=== PATIENT | female | born 1945 | race Caucasian/White ===

== ENCOUNTER 2024-10-25 20:38 | Inpatient (IN) | payer MEDICARE, OTHER, SELFPAY ==
[2024-10-25 17:30] VITALS: BP 158/88
--- NOTE | 2024-10-25 17:32 | ED.GENMED ---
History of Present Illness
General
Chief Complaint: Fall
Time Seen by Provider: 10/25/24 17:31
History of Present Illness
History of Present Illness:
TIME OF INITIAL ENCOUNTER: 5:35 PM
HPI: Patient came in by ambulance after a fall. She was at her son's house and stepped down a step carrying a dessert tray, misstepped and fell, and landed on her left hip. She was unable to bear weight afterward. EMS was called and brought her
here. EMS gave 75 mcg of fentanyl and this led to nausea. She still has nausea. She denies striking her head. She appears to be a very reliable historian.
EXAM:
GENERAL: Well appearing in no distress
CERVICAL SPINE: No midline c-spine tenderness with excellent AROM
HEAD: No evidence of craniofacial trauma
CHEST: No chest wall tenderness, normal heart sounds
LUNGS: Equal lung sounds, no respiratory distress
ABDOMEN: No abdominal tenderness, no peritoneal signs
EXTREMITIES: There is markedly decreased active range of motion at the left hip, there is pain with passive range of motion into rotation at the left hip, remainder of extremities are unremarkable
NEURO: Excellent strength all extremities, appropriate mental status, normal speech/language
NUMBER AND COMPLEXITY OF PROBLEMS ADDRESSED AT THE ENCOUNTER
� Chronic conditions affecting care: COPD, GERD, GI bleed, has had colon resection
� Acute Exacerbation and/or Progression of Chronic Illness: This is an acute problem
� Differential Diagnosis includes: Hip fracture, pelvis fracture, contusion
AMOUNT AND/OR COMPLEXITY OF DATA TO BE REVIEWED AND ANALYZED
� I performed an independent evaluation of and my interpretation is:
EKG:
CT:
X-rays: X-ray shows nondisplaced left intertrochanteric fracture
Laboratory Studies: CBC and chemistries unremarkable
Other:
� Review of other/old records: The patient was seen here in 2022 with a contusion of the chest wall
� Clinical information was obtained by an independent historian: EMS
� Prescriptions/Medications Considered but not given: Offered and considered narcotic analgesia however due to the nausea she declines
� Further testing considered but not performed: Considered CT of the head however the patient denies any head injury
RISK OF COMPLICATIONS AND/OR MORBIDITY OR MORTALITY OF PATIENT MANAGEMENT
� Social determinants of health affecting care: Lives at home
� Discussion with other providers: Hospitalist and Ortho notified at 8 PM
� Escalation of care including admission/observation vs risk of discharge considered: Based on initial examination, I am concerned for hip fracture, imaging and labs obtained.
ANY OTHER UPDATES:
Past History
Past History
ED Past Medical History: COPD and GERD
ED Past Surgical History: Bowel resection
Social History
Tobacco: Former smoker
Phy Exam
Physical Exam
Physical Exam:
See HPI
Course
Orders/Labs/Results
Orders:
Orders
10/25/24 17:37
CR Femur - Left Min 2 Vw Urgent
Comment:
Reason For Exam: trauma pain
CR Hip - LT w/wo Pel 2-3 Vw* Urgent
Comment:
Reason For Exam: fall trauma pain
Include a pelvis x-ray?: Yes
10/25/24 17:39
Ondansetron Injectable [Zofran] 4 mg .ROUTE .STK-MED ONE
Ondansetron Injectable [Zofran] 4 mg IV NOW STA
10/25/24 17:42
Type+Screen Urgent
Basic Metabolic Panel Urgent
Complete Blood Count/With Diff Urgent
PTT Urgent
Prothrombin Time Urgent
10/25/24 19:11
ABO2 Urgent
BBK Wristband Number:
Associate notified that ABO2 has been ordered: [id number]
Date: 10/25/24
Time: 19:12
Bread Molder ID: [id number]
10/25/24 20:08
Morphine Sulfate 2 mg IV NOW STA
Ondansetron Injectable [Zofran] 4 mg IV NOW STA
Abnormal Lab Results
10/25/24
17:42
RBC 4.04 L 10^6/uL
(4.20-5.40)
Absolute Monos (auto) 0.9 H 10^3/uL
(0.1-0.6)
Monocytes % 10.8 H %
(1.7-9.3)
Sodium 132 L mmol/L
(135-145)
Creatinine 0.5 L mg/dL
(0.6-1.0)
Glucose 115 H mg/dl
(70-99)
10/25/24 17:42
10/25/24 17:42
Vital Signs
Initial and Last Documented VS:
Initial Vital Signs
Temp Pulse Resp BP
36.4 C 78 18 158/88
10/25/24 17:30 10/25/24 17:30 10/25/24 17:30 10/25/24 17:30
Last Documented Vital Signs
Temp Pulse Resp BP
36.4 C 68 20 158/88
10/25/24 17:30 10/25/24 18:15 10/25/24 18:15 10/25/24 17:34
*Critical Care Note
Total Time (30-74mins, 75-104mins- exclusive of procedures): Not Applicable
ED Attending Note
-
Portions of this chart may have been created with voice recognition software.� Occasional wrong word or��sound alike� substitutions may have occurred due to the inherent limitations of voice recognition software.
Discharge Plan
Departure
Patient Disposition: Admit
Date of Disposition: 10/25/24
Time of Disposition: 20:03
Presentation/result/management discussed w/ accepting MD/DO: Hospitalist
Discharge Problem:
Intertrochanteric fracture of left femur
Prescriptions:
No Action
oxycodone 5 mg tablet
5 mg PO Q4H PRN (Reason: pain) Qty: 14 0RF
gabapentin 100 mg capsule
100 mg PO TID Qty: 20 0RF
Referrals:
UNKNOWN - PT NOT,INTERVIEWE [Family Provider] -
Interventions
Interventions:
*Risk Screen - Suicide Last Done: 10/25/24 17:30
*General Assessment Last Done: 10/25/24 17:30
*Neglect/Abuse Screening Last Done: 10/25/24 17:30
*ED COVID-19 Vaccine History Last Done: 10/25/24 18:23
ED-Musculoskeletal Assessment Last Done: 10/25/24 18:23
ED- Neurological Assessment Last Done: 10/25/24 18:23
ED-Skin Assessment Last Done: 10/25/24 18:23
Discharge Date and Time
Print Language: LUXEMBOURGISH
[2024-10-25 17:34] VITALS: BP 158/88
[2024-10-25] MEDS: ZOFRAN 4 MG IV ×2 (17:41→20:32)
[2024-10-25 17:55] LABS: % Basophils 0.6 % (0-2); % Eosinophils 2.2 % (0-6); % Immature Granulocytes 0.4 % (0-0.5); % Lymphocytes 29.8 % (20.5-51.1); % Monocytes 10.8 % (1.7-9.3); % Neutrophils 56.2 % (42.2-75.2); Absolute Basophils 0.1 10^3/uL (0-0.2); Absolute Eosinophils 0.2 10^3/uL (0-0.7); Absolute Lymphocytes 2.5 10^3/uL (1.2-3.4); Absolute Monocytes 0.9 10^3/uL (0.1-0.6); Absolute Neutrophils 4.8 10^3/uL (1.4-6.5); Hematocrit 37.2 % (37.0-47.0); Hemoglobin 12.5 g/dL (12.0-16.0); Mean Corp Hgb Conc. 33.6 g/dL (33.0-37.0); Mean Corpuscular Hgb 30.9 pg (27.0-31.0); Mean Corpuscular Volume 92.1 fL (81.0-99.0); Mean Platelet Volume 8.9 fL (7.4-10.4); Nucleated Red Blood Cells % 0 %; Platelet Count 274 10^3/uL (130-400); Red Blood Cell Count 4.04 10^6/uL (4.20-5.40); Red Cell Dist. Width 13.9 % (11.5-14.5); White Blood Cell Count 8.5 10^3/uL (4.8-10.8)
[2024-10-25 18:04] LABS: INR 0.95
[2024-10-25 18:11] LABS: Blood Urea Nitrogen 10 mg/dl (7-17); Calcium 8.9 mg/dl (8.4-10.2); Carbon Dioxide 24 mmol/L (22-30); Chloride 103 mmol/L (98-107); Glucose 115 mg/dl (70-99); Potassium 4.2 mmol/L (3.5-5.1); Sodium 132 mmol/L (135-145); eGFR > 60.00
--- NOTE | 2024-10-25 20:26 | HPS.HSE ---
Family Physician
-
Family Physician: INTERVIEWE UNKNOWN - PT NOT
Chief Complaint
-
Left Hip Pain
History of Present Illness
Patient is a 79 y/o female past medical history of COPD who presents with left hip following a fall. Additional history is obtained from patient's family at the bedside. Patient had eye surgery several weeks and since that time seems to be having
difficulty with depth perception. Patient was walking, carrying a plate and missed the step down into the dining room. She landed in the left hip and was unable to bear weight after the fall. She denies hitting her head during the event.
Medical History
Past Medical History
Past Medical History: Reports Other
Additional Past Medical History:
COPD
Insomnia
Glaucoma
Past Surgical History: Reports Other
Additional Past Surgical History:
Colon Resection
Appendectomy
Hernia Repair
Total Hysterectomy
Eye Surgery
Social History
Tobacco: Former Smoker (Quit about 10 years ago)
Alcohol: None
Living: Alone
Family History
Family History: Not pertinent
Allergies / Home Medications
Allergies reflects when Allergies were last updated in [facility].
Home Medications with original date entered in [facility]
Allergy/Medication List:
Allergies
Allergy/AdvReac Type Severity Reaction Status Date / Time
No Known Allergies Allergy Verified 10/25/24 17:29
Home Medications
temazepam 30mg PO HS
Singulair 10mg PO Daily
Stiolto 2.5mcg/2.5mcg 2 puff INH DAILY
Review of Systems
-
A 12 point ROS was completed and negative except as noted: Yes
Constitutional: Denies Fever or Chills
Respiratory: Denies Cough or Hemoptysis
Cardiac: Denies Chest Pain or Palpitations
Physical Exam
Vital Signs
Vital Signs
Temp Pulse Resp BP
97.6 F 68 20 158/88
10/25/24 17:30 10/25/24 18:15 10/25/24 18:15 10/25/24 17:34
Physical Exam
General: Comfortable and Conversant
HEENT: Anicteric and Moist mucous membranes
Respiratory: Clear and Non Labored Respirations
Cardiac: S1/S2 and Regular Rhythm
GI: Soft and Non Tender
Rectal: Deferred by Provider
Genito-urinary: Clear Urine
Musculoskeletal: No Clubbing, No Cyanosis and Other (Left lower extremity is slightly shortened and externally rotated)
Skin: Warm and Dry
Neuro: Awake, Alert, Oriented and Nonfocal/grossly intact
Psych: Calm
Laboratory Results
-
10/25/24 17:42
10/25/24 17:42
Laboratory Results
PT 13.0 Sec (11.4-14.6) 10/25/24 17:42
INR 0.95 10/25/24 17:42
APTT 31.0 Sec (23.4-35.0) 10/25/24 17:42
Data Reviewed
-
Diagnostic Radiology: Report Reviewed by me
Lab Data: Labs Reviewed by me
Impression/Plan
-
Mechanical Fall resulting in Left Hip Fracture
-Consult Ortho
-NPO after midnight for possible OR tomorrow
-Continue Tylenol for mild, Oxycodone for moderate and Dilaudid for severe pain
-COPD, no acute exacerbation
-Continue Singulair and Stiolto inhaler
Insomnia
-Continue temazepam
Glaucoma
-Continue usual eye drops
DVT proph: SCDs
Code STatus: Full Code
[2024-10-25] MEDS: MORPHINE SULFATE 2 MG IV (20:32)
--- NOTE | 2024-10-25 21:02 | W.PN.UPDATE ---
Update Note
Progress Note Update
Patient seen in conjunction with CASSIE. I agree with her findings on history and physical as well as the assessment and plan listed otherwise.
Briefly this is a 79-year-old with past medical history of COPD not on home O2 who presents to the emergency department after a mechanical fall at home. Patient had recent hide procedure which is affected her depth perception. She has not had
frequent falls but she did fall while going down steps today. There was no loss of consciousness. She fell on the left side. Ultimately found to have a left nondisplaced intertrochanteric fracture.
In the ED she was afebrile, blood pressure was stable at 158/88 with a pulse of 68 respiratory rate was 20. CBC was unremarkable. Electrolytes only notable for a sodium of 132 with otherwise normal BUN and creatinine.
On exam she is well-appearing, there is no external rotation of the foot and no limb length asymmetry. Pulses are intact bilaterally. She is in significant pain requiring fentanyl and morphine in the ED.
Assessment and plan
Left femoral nondisplaced intertrochanteric fracture
- admit to med/surg
- NPO w/breakfast
- surgery aware, patient has no contraindication to OR and can proceed as necessary.
- pain control and antiemetics
- PTOt evaluation
- dvt ppx w/ lovenox sq
Hyponatremia - Na 132. Likely pain related. Also no po today
- pain control and repeat Na in am
- allow for po intake until midnight, then gentle maintenance NS
COPD - Stabe
- continue inhalers wit prn nebs
[2024-10-25] MEDS: ROXICODONE 5 MG PO (21:49)
[2024-10-25 21:50] VITALS: BP 153/74
[2024-10-25 23:00] VITALS: BP 153/74
[2024-10-26] VITALS (11 sets, daily range): BP systolic 103–154; BP diastolic 48–70; BMI 21.0
[2024-10-26] MEDS: ROXICODONE 5 MG PO ×2 (01:52→08:17)
[2024-10-26 05:39] LABS: Hematocrit 35.4 % (37.0-47.0); Hemoglobin 11.5 g/dL (12.0-16.0); Mean Corp Hgb Conc. 32.5 g/dL (33.0-37.0); Mean Corpuscular Hgb 30.4 pg (27.0-31.0); Mean Corpuscular Volume 93.7 fL (81.0-99.0); Mean Platelet Volume 8.8 fL (7.4-10.4); Platelet Count 239 10^3/uL (130-400); Red Blood Cell Count 3.78 10^6/uL (4.20-5.40); Red Cell Dist. Width 13.9 % (11.5-14.5); White Blood Cell Count 9.4 10^3/uL (4.8-10.8)
[2024-10-26 06:05] LABS: Blood Urea Nitrogen 9 mg/dl (7-17); Calcium 8.6 mg/dl (8.4-10.2); Carbon Dioxide 28 mmol/L (22-30); Chloride 100 mmol/L (98-107); Glucose 109 mg/dl (70-99); Potassium 4.1 mmol/L (3.5-5.1); Sodium 133 mmol/L (135-145); eGFR > 60.00
--- NOTE | 2024-10-26 07:42 | W.PN.HOSP.TC ---
Today's Communication/Plan
-
.
Assessment / Plan
Assessment / Plan
Ms. Lucie Martinez is a 79yoF pmh COPD, GERD admitted after a fall.
Mechanical fall resulting in L hip fracture
- NPO for procedure
- pain control
- ortho consulted - procedure today
COPD
- not in acute exacerbation
- cont home singulair and stiolto
Insomnia
- cont temazepam
Glaucoma
- cont home eye drops
Diet: NPO
DVT ppx: SCDs
Code status: FULL CODE
Anticipated Discharge: 24 - 48 hours
Subjective/Interval History
-
Date of Service: October 26, 2024
Ms. Lucie Martinez is a 79yoF pmh COPD, GERD admitted after a fall. Went down a step carrying a dessert tray, misstepped, fell, and landed on L hip. Unable to bear weight. Has been having difficulty with depth perception after an eye surgery several
weeks ago. Denies hitting head, no LOC.
Objective Data
-
Labs:
Laboratory Results
10/26/24
05:19
WBC 9.4
Hgb 11.5 L
Hct 35.4 L
Plt Count 239
Sodium 133 L
Potassium 4.1
Chloride 100
Carbon Dioxide 28
BUN 9
Creatinine 0.6
Glucose 109 H
Calcium 8.6
Vital Signs:
Vital Signs
Temp Pulse Resp BP Pulse Ox
97.6 F 75 16 153/74 97
10/25/24 23:00 10/25/24 23:00 10/25/24 23:00 10/25/24 23:00 10/25/24 23:00
Review of Systems
-
History Source: Patient
Constitutional: Reports No Symptoms
EENT: Reports No Symptoms Reported
Respiratory: Reports No Symptoms
Cardiac: Reports No Symptoms
Abdomen/GI: Reports No Symptoms
Genitourinary: Reports No Symptoms
Musculoskeletal: Reports Joint Pain
Neuro: Reports No Symptoms
Physical Exam
-
General: Well Developed and No Apparent Distress
HEENT: Normocephalic, Atraumatic, Moist Mucous Membranes and Anicteric
Respiratory: Clear to Auscultation
Cardiac: Regular Rhythm and S1/S2
GI: Soft, Nontender, Nondistended and Normal Bowel Sounds
Musculoskeletal: No Clubbing, No Cyanosis and No Edema
Skin: Warm and Dry
Neuro: AO x 3
Psych: Calm
[2024-10-26] MEDS: COSOPT EYE DROPS 1 DROP RIGHT EYE ×2 (08:16→21:58)
[2024-10-26] MEDS: ISOPTO CARPINE 2% EYE DROPS 1 DROP RIGHT EYE ×3 (08:16→23:19)
[2024-10-26] MEDS: ALPHAGAN 0.2% EYE DROPS 1 DROP BOTH EYES ×2 (08:16→21:52)
--- NOTE | 2024-10-26 09:35 | CON.ORTHO ---
Consultation
-
Date/Time Consultation Requested: Oct 25
Date/Time Consultation Performed: Oct 25
Requesting Provider: JUANPABLO Cage
Performing Provider: Jerome Bean
Reason for Consultation: Left Hip fracture
Consultation - Orthopedics
History
Dictation#[id number]
HPI: Requested in consult to this very pleasant 79 y/o white female with a PMH COPD, insomnia, and glaucoma, who unfortunately sustained a mechanical fall at family's home last evening while stepping down a step into the dining room while carrying a
plate. I'm told she recently had an eye procedure and has been having issues with depth preception. She landed directly on her left side. She was unable to bear weight. She denies a prodrome, LOC, or headstrike. She was transported here to [facility]
where xrays confirmed a nondisplaced left proximal femur fracture. She has been admitted to the hospitalist service for further work-up and we have been requested for the consideration of surgical correction. Of note she does not take blood thinners.
Allergies / Home Medications
Allergy/AdvReac Type Severity Reaction Status Date / Time
No Known Allergies Allergy Verified 10/25/24 17:29
�Medication �Instructions �Recorded
brimonidine 0.2 % eye drops 1 drp BID 10/25/24
dorzolamide 22.3 mg-timolol 6.8 1 drp ophthalmic (eye) BID 10/25/24
mg/mL eye drops (Cosopt)
latanoprostene bunod 0.024 % eye 1 drp BOTH EYES BID 10/25/24
drops (Vyzulta)
montelukast 10 mg tablet 10 mg PO HS 10/25/24
multivitamin with calcium carb and 1 tab PO DAILY 10/25/24
iron tablet
pilocarpine HCl 2 % eye drops 1 drp ophthalmic (eye) TID 10/25/24
temazepam 30 mg capsule 30 mg PO HS 10/25/24
tiotropium 2.5 mcg-olodaterol 2.5 2 inh inhalation DAILY 10/25/24
mcg/actuation mist for inhalation
(Stiolto Respimat)
Vital Signs / Lab Results
Temp Pulse Resp BP Pulse Ox
98.0 F 85 16 149/68 95
10/26/24 07:55 10/26/24 07:55 10/26/24 07:55 10/26/24 07:55 10/26/24 07:55
10/26/24 05:19
10/26/24 05:19
Assessment / Plan
PE: Bedrest. Left hip skin intact. LLE slightly short and ER. Pain generally about the left hip. A bit swollen. + logroll LLE. Deferred ROM due to known fracture. Left knee nontender. Calf soft, nontender. DNVI LLE
Xrays: Left hip and femur reveal a luceny in the IT region of the left proximal femur consistent with nondisplaced fracture
Impression: NIURKA
Plan: At length discussion with the patient and her son, sonia Schmitz, yields understanding to the nature of her left hip fracture. RBAs of nonoperative and operative management discussed and she has agreed to proceed with surgical correction. She
has accepted all the proposed risks of surgery and wishes to go forward. Plan for the OR this AM under Dr. Bean's direction for Left hip ORIF. OR aware. Discussed the post-op and rehab course, and will appreciate CM's input. Surgical and blood
consents have been signed and placed to the patient's chart. Operative site marked as the LEFT hip. Patient is and will remain NPO. ABX front desk monitor. T&S completed. Will follow
--- NOTE | 2024-10-26 13:02 | W.IMMPOSTOP ---
Surgical Immed Post Op Note
-
Primary Surgeon: Dinesh Bean MD
Assisting Surgeon:
Pre-op Diagnosis: left hip intertrochanteric fracture
Post-op Diagnosis: left hip intertrochanteric fracture
Procedure Performed: intramedullary fixation left proximal femur fracture
Anesthesia Type: general
Specimen / Cultures: none
Estimated Blood Loss: 25mL
Complications: none apparent
Operative Findings: left hip intertrochanteric fracture
Implants: TWINLINX Gamma 3 [id number] 125 degree nail; 10.5x95mm lag screw; 5x37.5mm distal interlocking screw
Postoperative care: ASA 325mg x4 weeks for DVT PPX; ancef 1g Q8 for 24 hours; pain control PRN; WBAT
Operative dictation #: [id number]
[2024-10-26] MEDS: ZOFRAN 4 MG IV ×2 (13:21→15:11)
--- NOTE | 2024-10-26 14:25 | PTCARENOTE ---
Telephone report received from [employer] [employer] [facility]; patient arrived from PACU in bed on 2L 02 and IVF infusing; VSS (97.9, 145/68, 75, 16, 98% 2L); following assessment O2 removed with pulse ox 98% on RA.
[2024-10-26] MEDS: NORMOSOL-R/PLASMALYTE-A 1000 IV (16:40)
[2024-10-26] MEDS: ASPIRIN 325 MG PO (17:17)
[2024-10-26] MEDS: ANCEF 5 IV (21:51)
[2024-10-26] MEDS: COLACE PO ×2 (21:51→22:12)
[2024-10-26] MEDS: SINGULAIR 10 MG PO (22:02)
[2024-10-26] MEDS: RESTORIL 30 MG PO (23:19)
[2024-10-27 03:20] VITALS: BP 101/52
[2024-10-27] MEDS: ANCEF 5 IV (03:35)
[2024-10-27] MEDS: NORMOSOL-R/PLASMALYTE-A 1000 IV ×2 (05:27→19:25)
--- NOTE | 2024-10-27 06:40 | W.PN.ORTHO ---
Today's Communication / Plan
-
79-year-old female POD #1 Left Hip Gamma Nail 10/26/[address] Bean.
- WBAT LLE with use of walker for assistance.
- PT/OT.
- ASA 325 mg once daily x 4 weeks for DVT prophylaxis.
- Hemoglobin pending this AM. Continue to monitor.
- Pain control per primary team.
- CM regarding discharge planning.
- Orthopedic surgery will continue to follow.
Assessment
.
Distal Motor Intact: Yes
Dressing:
Aquacel dressing intact with scant contained bloody drainage.
Calf is soft and nontender to palpation. NVI distally.
Assessment:
POD #1 LEFT Hip Gamma Nail 10/26/[address] Bean.
Plan
.
Surgery / Date: Left Hip Gamma Nail 10/26/[address] Bean
DVT Prophylaxis: Aspirin
Activity:
Out of bed.
PT/OT
Discharge Plan: Other
Discharge Information:
Appreciate CM.
Subjective
.
.:
Patient resting comfortably in bed. Denies any new complaints or concerns at this time. Pain controlled.
Vital Signs and Labs
.
Vital Signs and Labs:
Temp Pulse Resp BP Pulse Ox
98.0 F 70 16 101/52 94
10/27/24 03:20 10/27/24 03:20 10/27/24 03:20 10/27/24 03:20 10/27/24 03:20
PT 13.0 Sec (11.4-14.6) 10/25/24 17:42
INR 0.95 10/25/24 17:42
[2024-10-27 07:24] LABS: Hematocrit 28.3 % (37.0-47.0); Hemoglobin 9.3 g/dL (12.0-16.0); Mean Corp Hgb Conc. 32.9 g/dL (33.0-37.0); Mean Corpuscular Volume 94.3 fL (81.0-99.0); Mean Platelet Volume 9.2 fL (7.4-10.4); Platelet Count 182 10^3/uL (130-400); Red Cell Dist. Width 13.9 % (11.5-14.5); White Blood Cell Count 8.6 10^3/uL (4.8-10.8)
[2024-10-27 07:32] LABS: Blood Urea Nitrogen 9 mg/dl (7-17); Calcium 7.7 mg/dl (8.4-10.2); Carbon Dioxide 27 mmol/L (22-30); Chloride 99 mmol/L (98-107); Estimated Creatinine Clearance 47 ml/min; Glucose 98 mg/dl (70-99); Potassium 3.8 mmol/L (3.5-5.1); Sodium 133 mmol/L (135-145); eGFR > 60.00
--- NOTE | 2024-10-27 07:43 | W.PN.HOSP.TC ---
Today's Communication/Plan
-
.
Assessment / Plan
Assessment / Plan
Ms. Lucie Martinez is a 79yoF h COPD, GERD admitted after a fall.
Mechanical fall resulting in L hip intertrochanteric fracture
- pain control
- ortho consulted
- ASA 325 mg once daily x 4 weeks for DVT prophylaxis
- CM consulted for d/c planning
Anemia
- expected slight drop after procedure
- monitor CBC
COPD
- not in acute exacerbation
- cont home singulair and stiolto
Insomnia
- cont temazepam
Glaucoma
- cont home eye drops
Diet: regular
DVT ppx: SCDs
Code status: FULL CODE
Anticipated Discharge: 24 - 48 hours
Subjective/Interval History
-
Date of Service: October 27, 2024
Ms. Lucie Martinez is a 79yoF h COPD, GERD admitted after a fall. Intramedullary fixation left proximal femur fracture yesterday. Pt tolerated procedure well. Her pain is well controlled.
Objective Data
-
Labs:
Laboratory Results
10/27/24
05:46
WBC 8.6
Hgb 9.3 L
Hct 28.3 L
Plt Count 182 D
Sodium 133 L
Potassium 3.8
Chloride 99
Carbon Dioxide 27
BUN 9
Creatinine 0.7
Glucose 98
Calcium 7.7 L
Vital Signs:
Vital Signs
Temp Pulse Resp BP Pulse Ox
98.0 F 70 16 101/52 94
10/27/24 03:20 10/27/24 03:20 10/27/24 03:20 10/27/24 03:20 10/27/24 03:20
I&O
10/26/24 10/27/24 10/28/24
06:59 06:59 06:59
Intake Total 1490 / 1490
Balance 1490 / 149
Review of Systems
-
History Source: Patient
Constitutional: Reports No Symptoms
EENT: Reports No Symptoms Reported
Respiratory: Reports No Symptoms
Cardiac: Reports No Symptoms
Abdomen/GI: Reports No Symptoms
Genitourinary: Reports No Symptoms
Musculoskeletal: Reports Joint Pain
Neuro: Reports No Symptoms
Physical Exam
-
General: Well Developed, Well Nourished and No Apparent Distress
HEENT: Normocephalic, Atraumatic, Moist Mucous Membranes and Anicteric
Respiratory: Clear to Auscultation and Non Labored Respirations
Cardiac: Regular Rhythm and S1/S2
GI: Soft, Nontender, Nondistended and Normal Bowel Sounds
Musculoskeletal: No Clubbing, No Cyanosis and No Edema
Skin: Warm and Dry
Neuro: AO x 3
Psych: Calm
[2024-10-27] MEDS: ISOPTO CARPINE 2% EYE DROPS 1 DROP RIGHT EYE ×3 (07:52→21:22)
[2024-10-27] MEDS: ASPIRIN 325 MG PO (07:52)
[2024-10-27] MEDS: ALPHAGAN 0.2% EYE DROPS 1 DROP BOTH EYES ×2 (07:53→20:02)
[2024-10-27] MEDS: COSOPT EYE DROPS 1 DROP RIGHT EYE ×2 (07:53→20:02)
[2024-10-27 08:00] VITALS: BP 130/62
[2024-10-27 09:00] VITALS: BP 130/62; PULSE 74; O2SAT 89
[2024-10-27 09:05] VITALS: BP 130/62; PULSE 75; O2SAT 91
[2024-10-27] MEDS: COLACE PO (10:06)
[2024-10-27] MEDS: TYLENOL 650 MG PO ×2 (10:42→17:03)
--- NOTE | 2024-10-27 12:41 | CM ---
Met with pt at bedside
Pt reports she lives alone in a 2 story home; 1 step to enter, 13 steps to 2nd fl (has a stair glide)
Independent with ADL's and cooking, drives, has cleaning service
DME - rolling walker, single point cane, stair glide
SNF - was at one in [place] - unable to recall name. Did not have positive experience
HH - denies past hx. Has had [facility] [place] in past, briefly per pt
PCP - [facility]
Pharm - [facility]
PT/OT recs - SNF
Discussed with pt - given list of facility's to review. Will discuss with her son. Prefers to go home
Plan - TBD - anticipate SNF when bed obtained
--- NOTE | 2024-10-27 12:53 | PN.CDI ---
CDI
- -
CDI:
Physician Documentation Request
Admit Date: 10/25/24 20:38
Dear Doctor Benito/ Resident,
Please review the following and provide your response in the progress notes.
Clinical Indicators:
Pt admitted with Lt hip intertrochanteric fracture s/p surgery on 10/26
Documented per progress note 10/27, ' Postoperative anemia with hemoglobin 9.3 this morning....Anemia expected slight drop after procedure monitor CBC...'
Trended Hemoglobin/Hematocrits below
10/25/24 10/26/24 10/27/24
17:42 05:19 05:46
Hgb 12.5 11.5 L 9.3 L
Hct 37.2 35.4 L 28.3 L
Based on the above, could you clarify, in your progress note, which of the following is the most likely type of anemia you are evaluating, monitoring and/or treating?
Acute blood loss anemia
Other anemia (Please Specify)
Use of terms such as suspected, likely, concern for, or probable (associated with a specific diagnosis that is being evaluated, monitored, or treated as if it exists) are acceptable and can be coded in the inpatient setting, when documented at the
time of discharge.
Thank you,
Soco Fowler RN
CDI Specialist
[place]
Please use your independent medical judgment in providing your response.
[2024-10-27 16:00] VITALS: BP 95/52
[2024-10-27] MEDS: COLACE 100 MG PO (20:02)
[2024-10-27] MEDS: ROXICODONE 5 MG PO (20:08)
[2024-10-27] MEDS: SINGULAIR 10 MG PO ×2 (21:20→21:21)
[2024-10-27] MEDS: RESTORIL 30 MG PO (21:21)
[2024-10-27] MEDS: NON-FORMULARY ITEM 1 DROP BOTH EYES (22:21)
[2024-10-27 23:25] VITALS: BP 97/54
[2024-10-28] MEDS: ROXICODONE 5 MG PO ×2 (02:45→18:01)
[2024-10-28] MEDS: DILAUDID 0.25 MG IV ×2 (04:52→21:11)
[2024-10-28 06:49] LABS: Hematocrit 29.8 % (37.0-47.0); Hemoglobin 9.7 g/dL (12.0-16.0); Mean Corp Hgb Conc. 32.6 g/dL (33.0-37.0); Mean Corpuscular Hgb 31.6 pg (27.0-31.0); Mean Corpuscular Volume 97.1 fL (81.0-99.0); Mean Platelet Volume 9.2 fL (7.4-10.4); Platelet Count 179 10^3/uL (130-400); Red Blood Cell Count 3.07 10^6/uL (4.20-5.40); White Blood Cell Count 7.1 10^3/uL (4.8-10.8)
[2024-10-28 07:19] LABS: Blood Urea Nitrogen 7 mg/dl (7-17); Calcium 7.7 mg/dl (8.4-10.2); Carbon Dioxide 32 mmol/L (22-30); Chloride 101 mmol/L (98-107); Estimated Creatinine Clearance 55 ml/min; Glucose 88 mg/dl (70-99); Potassium 3.9 mmol/L (3.5-5.1); Sodium 134 mmol/L (135-145); eGFR > 60.00
[2024-10-28] MEDS: TYLENOL 650 MG PO (07:43)
[2024-10-28] MEDS: ASPIRIN 325 MG PO (07:44)
[2024-10-28] MEDS: ALPHAGAN 0.2% EYE DROPS 1 DROP BOTH EYES ×2 (07:44→20:55)
[2024-10-28] MEDS: COLACE 100 MG PO ×2 (07:44→20:53)
[2024-10-28] MEDS: ISOPTO CARPINE 2% EYE DROPS 1 DROP RIGHT EYE ×3 (07:45→20:56)
[2024-10-28] MEDS: COSOPT EYE DROPS 1 DROP RIGHT EYE ×2 (07:45→20:55)
[2024-10-28 08:03] VITALS: BP 121/58
--- NOTE | 2024-10-28 09:55 | W.PN.ORTHO ---
Today's Communication / Plan
-
Appreciate the primary team, continue Tx
Dispo per CM, likely SNF
Dressing change please
PT/OT. WBAT LLE on walker/assistance
ASA 325mg daily x 4 weeks for DVT ppx
Pain control, ice to hip. Avoid Narcos
Dressing to remain 7-10 days
Piedad out 2 weeks (office of Rehab)
If piedad out in office outpatient Ortho 4 weeks
Assessment
.
Distal Motor Intact: Yes
Dressing:
Aquacel dressing peeling off. Will have nursing place a new one
Assessment:
POD#2 Left Gamma
Overall doing/feeling well
Calf soft, nontender
Plan
.
Surgery / Date: Left gamma/Oct 25 ([facility])
DVT Prophylaxis: Aspirin
Activity:
Out of bed. WBAT LLE
PT/OT
Discharge Plan: Other (Per CM)
Subjective
.
.:
Patient resting comfortably in bed. No significant left hip pain
Vital Signs and Labs
.
Vital Signs and Labs:
Lab Results
10/28/24 06:08
10/28/24 06:08
Temp Pulse Resp BP Pulse Ox
99.3 F 83 18 121/58 92
10/28/24 08:03 10/28/24 08:03 10/28/24 08:03 10/28/24 08:03 10/28/24 08:03
PT 13.0 Sec (11.4-14.6) 10/25/24 17:42
INR 0.95 10/25/24 17:42
--- NOTE | 2024-10-28 10:11 | CM ---
Chart reviewed
Spoke with pt regarding snf/rehab options - deferred choices to her son
Spoke with Son Nadir - discussed SNF options - Requested referrals be sent to [facility]
Referrals sent in [facility]
Plan - anticipate transfer to SNF when medically stable and bed obtained
--- NOTE | 2024-10-28 10:29 | W.PN.HOSP.TC ---
Today's Communication/Plan
-
awaiting SNF placement
Assessment / Plan
Assessment / Plan
Ms. Lucie Martinez is a 79yoF pmh COPD, GERD admitted after a fall.
Mechanical fall resulting in L hip intertrochanteric fracture
- pain control
- ortho consulted
- ASA 325 mg once daily x 4 weeks for DVT prophylaxis
- CM consulted for d/c planning - pending SNF placement
Acute blood loss Anemia
- expected slight drop after procedure
- improving
- monitor CBC
COPD
- not in acute exacerbation
- cont home singulair and stiolto
Insomnia
- cont temazepam
Glaucoma
- cont home eye drops
Diet: regular
DVT ppx: SCDs
Code status: FULL CODE
Anticipated Discharge: 24 - 48 hours
Subjective/Interval History
-
Date of Service: October 28, 2024
Ms. Lucie Martinez is a 79yoF pmh COPD, GERD admitted after a fall. Her pain is well controlled. Pending acceptance at SNF.
Objective Data
-
Labs:
Laboratory Results
10/28/24
06:08
WBC 7.1
Hgb 9.7 L
Hct 29.8 L
Plt Count 179
Sodium 134 L
Potassium 3.9
Chloride 101
Carbon Dioxide 32 H
BUN 7
Creatinine 0.6
Glucose 88
Calcium 7.7 L
Vital Signs:
Vital Signs
Temp Pulse Resp BP Pulse Ox
99.3 F 83 18 121/58 92
10/28/24 08:03 10/28/24 08:03 10/28/24 08:03 10/28/24 08:03 10/28/24 08:03
I&O
10/27/24 10/28/24 10/29/24
06:59 06:59 06:59
Intake Total 1490 / 1490 2320 / 2320
Output Total 700 / 700 400 / 400
Balance 1490 / 1490 1620 / 1620 -400 / -400
Review of Systems
-
History Source: Patient
Constitutional: Reports No Symptoms
EENT: Reports No Symptoms Reported
Respiratory: Reports No Symptoms
Cardiac: Reports No Symptoms
Abdomen/GI: Reports No Symptoms
Musculoskeletal: Reports Joint Pain
Neuro: Reports No Symptoms
Physical Exam
-
General: Well Developed and Well Nourished
HEENT: Normocephalic, Atraumatic and Anicteric
Respiratory: Clear to Auscultation
Cardiac: Regular Rhythm and S1/S2
GI: Soft, Nontender, Nondistended and Normal Bowel Sounds
Musculoskeletal: No Clubbing, No Cyanosis and No Edema
Skin: Warm and Dry
Neuro: AO x 3
Psych: Calm
[2024-10-28 11:27] VITALS: BP 103/52; PULSE 72; O2SAT 99
[2024-10-28 11:31] VITALS: BP 103/52; PULSE 78
[2024-10-28 14:44] VITALS: BP 105/60
[2024-10-28] MEDS: NON-FORMULARY ITEM 1 DROP BOTH EYES (20:57)
[2024-10-28] MEDS: RESTORIL 30 MG PO (21:01)
[2024-10-28 23:54] VITALS: BP 113/54
[2024-10-29] MEDS: ROXICODONE 5 MG PO ×2 (03:06→14:07)
[2024-10-29 06:13] LABS: Hematocrit 28.9 % (37.0-47.0); Mean Corp Hgb Conc. 31.1 g/dL (33.0-37.0); Mean Corpuscular Hgb 30.3 pg (27.0-31.0); Mean Corpuscular Volume 97.3 fL (81.0-99.0); Mean Platelet Volume 9.2 fL (7.4-10.4); Platelet Count 190 10^3/uL (130-400); Red Blood Cell Count 2.97 10^6/uL (4.20-5.40); Red Cell Dist. Width 13.9 % (11.5-14.5); White Blood Cell Count 6.8 10^3/uL (4.8-10.8)
[2024-10-29 06:32] LABS: Blood Urea Nitrogen 5 mg/dl (7-17); Calcium 7.9 mg/dl (8.4-10.2); Carbon Dioxide 29 mmol/L (22-30); Chloride 101 mmol/L (98-107); Estimated Creatinine Clearance 55 ml/min; Glucose 92 mg/dl (70-99); Potassium 3.6 mmol/L (3.5-5.1); Sodium 134 mmol/L (135-145); eGFR > 60.00
[2024-10-29 07:30] VITALS: BP 141/67
[2024-10-29] MEDS: ALPHAGAN 0.2% EYE DROPS 1 DROP BOTH EYES ×2 (08:08→20:54)
[2024-10-29] MEDS: COSOPT EYE DROPS 1 DROP RIGHT EYE ×2 (08:09→20:54)
[2024-10-29] MEDS: ISOPTO CARPINE 2% EYE DROPS 1 DROP RIGHT EYE ×3 (08:09→20:53)
[2024-10-29] MEDS: COLACE 100 MG PO ×2 (08:11→20:54)
[2024-10-29] MEDS: ASPIRIN 325 MG PO (08:11)
[2024-10-29 11:30] VITALS: BP 95/48; PULSE 72; O2SAT 98
[2024-10-29 14:30] VITALS: BP 103/68
--- NOTE | 2024-10-29 14:55 | W.PN.HOSP.TC ---
Today's Communication/Plan
-
Pending SNF placed
Assessment / Plan
Assessment / Plan
#Mechanical fall resulting in L hip intertrochanteric fracture
- pain control
- ortho consulted
- ASA 325 mg once daily x 4 weeks for DVT prophylaxis
- CM consulted for d/c planning - pending SNF placement
#Acute blood loss Anemia secondary to surgical procedure
- expected slight drop after procedure
- stable
- monitor CBC
#COPD
- not in acute exacerbation
- cont home singulair and stiolto
#Insomnia
- cont temazepam
#Glaucoma
- cont home eye drops
Diet: regular
DVT ppx: SCDs
Code status: FULL CODE
Medically stable for discharge to SNF once insurance approval obtained bed available at facility
Anticipated Discharge: 24 - 48 hours
Subjective/Interval History
-
Date of Service: October 29, 2024
Seen and examined at the bedside. No acute events reported overnight. AFVSS this
Hemoglobin remains fairly stable in the range of 9-10, no acute bleeding noted. Denies any known bleed
Denies any complaints today, states she feels
Objective Data
-
Labs:
Laboratory Results
10/29/24
05:27
WBC 6.8
Hgb 9.0 L
Hct 28.9 L
Plt Count 190
Sodium 134 L
Potassium 3.6
Chloride 101
Carbon Dioxide 29
BUN 5 L
Creatinine 0.6
Glucose 92
Calcium 7.9 L
Vital Signs:
Vital Signs
Temp Pulse Resp BP Pulse Ox
97.7 F 85 16 103/68 96
10/29/24 14:30 10/29/24 14:30 10/29/24 14:30 10/29/24 14:30 10/29/24 14:30
I&O
10/28/24 10/29/24 10/30/24
06:59 06:59 06:59
Intake Total 2320 / 2320 560 / 560
Output Total 700 / 700 400 / 400
Balance 1620 / 1620 160 / 160
Review of Systems
-
History Source: Patient
All other systems: Reviewed and negative
Physical Exam
-
General: Well Developed, No Apparent Distress, Comfortable and Other (Thin and frail appearing)
HEENT: Normocephalic, Atraumatic and Moist Mucous Membranes
Respiratory: Clear to Auscultation and Non Labored Respirations
Cardiac: Regular Rhythm and S1/S2; Negative Murmur, Rub or Gallop
GI: Soft, Nontender, Nondistended and Normal Bowel Sounds
Musculoskeletal: No Clubbing, No Cyanosis and No Edema
Skin: Warm and Dry; Negative Rash
Neuro: AO x 3 and Nonfocal/Grossly Intact
Psych: Calm
Data Reviewed
-
Labs: Labs Reviewed by me and Discussed with Patient
[2024-10-29] MEDS: SINGULAIR 10 MG PO (20:54)
[2024-10-29] MEDS: NON-FORMULARY ITEM 1 DROP BOTH EYES (20:55)
[2024-10-29] MEDS: RESTORIL 30 MG PO (20:55)
[2024-10-29 23:35] VITALS: BP 99/44
[2024-10-30] MEDS: ROXICODONE 5 MG PO ×2 (01:56→21:30)
[2024-10-30 07:35] VITALS: BP 153/71
[2024-10-30 08:02] LABS: Hematocrit 28.3 % (37.0-47.0); Mean Corp Hgb Conc. 31.8 g/dL (33.0-37.0); Mean Corpuscular Hgb 30.2 pg (27.0-31.0); Platelet Count 213 10^3/uL (130-400); Red Blood Cell Count 2.98 10^6/uL (4.20-5.40); Red Cell Dist. Width 13.7 % (11.5-14.5); White Blood Cell Count 5.7 10^3/uL (4.8-10.8)
[2024-10-30] MEDS: ALPHAGAN 0.2% EYE DROPS 1 DROP BOTH EYES ×2 (08:56→20:23)
[2024-10-30] MEDS: COLACE 100 MG PO ×2 (08:57→20:22)
[2024-10-30] MEDS: ASPIRIN 325 MG PO (08:57)
[2024-10-30] MEDS: COSOPT EYE DROPS 1 DROP RIGHT EYE ×2 (09:02→20:22)
[2024-10-30] MEDS: ISOPTO CARPINE 2% EYE DROPS 1 DROP RIGHT EYE ×3 (09:02→21:41)
[2024-10-30 12:50] VITALS: BP 125/71; PULSE 79; O2SAT 94
--- NOTE | 2024-10-30 13:13 | W.PN.HOSP.TC ---
Today's Communication/Plan
-
Order for home medication (Stiolto)
Pending SNF placement
Assessment / Plan
Assessment / Plan
#Mechanical fall resulting in L hip intertrochanteric fracture
- pain control
- ortho consulted
- ASA 325 mg once daily x 4 weeks for DVT prophylaxis
- CM consulted for d/c planning - pending SNF placement
#Acute blood loss Anemia secondary to surgical procedure
- expected slight drop after procedure
- stable
- monitor CBC
#COPD
- not in acute exacerbation
- cont home singulair and stiolto
- order placed for home stiolto
#Insomnia
- cont temazepam
#Glaucoma
- cont home eye drops
Diet: regular
DVT ppx: SCDs
Code status: FULL CODE
Medically stable for discharge to SNF once insurance approval obtained bed available at facility
Anticipated Discharge: Within 24 hours
Subjective/Interval History
-
Date of Service: October 30, 2024
Seen and examined at the bedside. No acute events reported overnight. AFVSS as of this morning.
Hemoglobin stable, at 9 this morning.
Otherwise states she feels well has no acute complaints. Pending SNF placement
Objective Data
-
Labs:
Laboratory Results
10/30/24
07:33
WBC 5.7
Hgb 9.0 L
Hct 28.3 L
Plt Count 213
Vital Signs:
Vital Signs
Temp Pulse Resp BP Pulse Ox
98.1 F 78 20 153/71 94
10/30/24 07:35 10/30/24 07:35 10/30/24 07:35 10/30/24 07:35 10/30/24 09:30
I&O
10/29/24 10/30/24 10/31/24
06:59 06:59 06:59
Intake Total 560 / 560 540 / 540
Output Total 400 / 400
Balance 160 / 160 540 / 540
Review of Systems
-
History Source: Patient
All other systems: Reviewed and negative
Physical Exam
-
General: Well Developed, No Apparent Distress, Comfortable and Other (Thin and frail)
HEENT: Normocephalic, Atraumatic, Moist Mucous Membranes and Anicteric
Respiratory: Clear to Auscultation, Non Labored Respirations and Accessory Resp Muscle Use
Cardiac: Regular Rhythm and S1/S2; Negative Murmur, Rub or Gallop
GI: Soft, Nontender, Nondistended and Normal Bowel Sounds
Musculoskeletal: No Clubbing, No Cyanosis and No Edema
Skin: Warm, Dry and Normal Turgor; Negative Rash
Neuro: AO x 3 and Nonfocal/Grossly Intact; Negative Tremors
Psych: Calm
[2024-10-30 15:20] VITALS: BP 103/66
[2024-10-30] MEDS: TYLENOL 650 MG PO (17:07)
[2024-10-30] MEDS: NON-FORMULARY ITEM 1 DROP BOTH EYES (21:41)
[2024-10-30] MEDS: RESTORIL 30 MG PO (21:42)
[2024-10-30] MEDS: SINGULAIR 10 MG PO (21:42)
[2024-10-30 23:19] VITALS: BP 99/53
[2024-10-31] MEDS: ROXICODONE 5 MG PO ×2 (03:40→12:20)
[2024-10-31 07:10] VITALS: BP 128/68
[2024-10-31] MEDS: COLACE 100 MG PO (09:11)
[2024-10-31] MEDS: ASPIRIN 325 MG PO (09:11)
[2024-10-31] MEDS: COSOPT EYE DROPS 1 DROP RIGHT EYE (09:11)
[2024-10-31] MEDS: ISOPTO CARPINE 2% EYE DROPS 1 DROP RIGHT EYE (09:11)
[2024-10-31] MEDS: ALPHAGAN 0.2% EYE DROPS 1 DROP BOTH EYES (09:12)
--- NOTE | 2024-10-31 09:45 | W.PN.UPDATE ---
Update Note
Progress Note Update
Patient felt something strange around her hip with PT yesterday. Repeat x-rays of the hip and pelvis were requested and were unremarkable. Gamma nail fixated femur noted without evidence of complication. Will continue working with PT/OT.
Discharge planning
--- NOTE | 2024-10-31 11:51 | W.PN.HOSP.TC ---
Today's Communication/Plan
-
Doing well. Stable for discharge once bed available.
Assessment / Plan
Assessment / Plan
79 woman with fall and broken hip.
1. Mechanical fall resulting in L hip intertrochanteric fracture - recovering well
- pain control
- ortho consulted
- ASA 325 mg once daily x 4 weeks for DVT prophylaxis
- CM consulted for d/c planning - pending SNF placement
2. Acute blood loss Anemia secondary to surgical procedure
- expected slight drop after procedure
- stable
- monitor CBC - next check as outpatient
3. COPD
- not in acute exacerbation
- cont home singulair and stiolto
- order placed for home stiolto
4. Insomnia
- cont temazepam
5. Glaucoma
- cont home eye drops
Diet: regular
DVT ppx: SCDs
Code status: FULL CODE
Medically stable for discharge to SNF once insurance approval obtained bed available at facility
Anticipated Discharge: Within 24 hours
Subjective/Interval History
-
Date of Service: October 31, 2024
Feels well. Some pain when she walks.
Objective Data
-
Vital Signs:
Vital Signs
Temp Pulse Resp BP Pulse Ox
98.1 F 89 16 128/68 97
10/31/24 07:10 10/31/24 07:10 10/31/24 07:10 10/31/24 07:10 10/31/24 07:10
I&O
10/30/24 10/31/24 11/01/24
06:59 06:59 06:59
Intake Total 540 / 540 720 / 720
Balance 540 / 540 720 / 720
Review of Systems
-
History Source: Patient
All other systems: Reviewed and negative
Physical Exam
-
General: Well Developed, Well Nourished, No Apparent Distress and Comfortable
HEENT: Normocephalic, Atraumatic, Moist Mucous Membranes, Nose Appears Normal and Ears Appear Normal
Respiratory: Clear to Auscultation
Cardiac: Regular Rhythm and S1/S2
GI: Soft, Nontender and Nondistended
Musculoskeletal: No Clubbing, No Cyanosis and No Edema
Skin: Warm and Dry
Neuro: Awake, Alert and Oriented
Psych: Calm
Data Reviewed
-
Labs: Labs Reviewed by me
--- NOTE | 2024-10-31 12:23 | CM ---
Addendum entered by Kayleigh Breaux 10/31/24 13:48:
Transport at 2PM
Family and facility made aware
Original Note:
Pt medically ready for discharge
Accepted at [facility]
Updated pts daughter in law Reena Martinez [phone] - will update pts son
Transport to be arranged
Plan - transfer to [facility]
R - [phone]
- [phone]
[2024-10-31 12:30] VITALS: BP 105/62; PULSE 81; O2SAT 96
--- NOTE | 2024-10-31 13:19 | W.DS.TRANS ---
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
-
Discharge Instructions:
Discharge Diagnosis/Procedures Mechanical fall resulting in L hip
intertrochanteric fracture
Diet As tolerated
Activity Do not bear weight L leg,With assistance
Driving Restrictions Not until seen by your Dr
Bathing Restrictions None
Other Services PT,OT
Specialty Instructions Weigh Daily
Instructions: Preventing falls in adults
Hip fracture in adults - Discharge instructions
Stand-Alone Forms:
Changes to Home Medications: No
Discharge Medications:
DC Medications w/original date entered in [email or web address]
brimonidine 0.2 % eye drops 1 drp BID 10/25/24
dorzolamide 22.3 mg-timolol 6.8 mg/mL eye drops (Cosopt) 1 drp ophthalmic (eye) BID 10/25/24
latanoprostene bunod 0.024 % eye drops (Vyzulta) 1 drp BOTH EYES HS 10/25/24
montelukast 10 mg tablet 10 mg PO HS 10/25/24
multivitamin with calcium carb and iron tablet 1 tab PO DAILY 10/25/24
pilocarpine HCl 2 % eye drops 1 drp ophthalmic (eye) TID 10/25/24
temazepam 30 mg capsule 30 mg PO HS 10/25/24
tiotropium 2.5 mcg-olodaterol 2.5 mcg/actuation mist for inhalation (Stiolto Respimat) 2 inh inhalation DAILY 10/25/24
acetaminophen 325 mg tablet 650 mg (2 x 325 mg) PO Q4HPRN PRN mild pain/ fever>100.5F 14 days #84 tabs 10/27/24
aspirin 325 mg tablet 325 mg PO DAILY 28 days #28 tabs 10/27/24
oxycodone 5 mg tablet 5 mg PO Q4HPRN PRN moderate pain 3 days #30 tabs 10/27/24
Home Medication Changes
Pending Results: No
Total time spent discharging patient (in min): 45
--- NOTE | 2024-10-31 13:20 | W.DCSUMMARY ---
Discharge Summary
Discharge Data
Date of Admission: 10/25/24
Date of Discharge: 10/31/24
Total time spent discharging patient (in min): 35
-
Pending Results: No
Hospital Course
Principal Diagnosis:
Mechanical Fall resulting in Left Hip Fracture
Chronic Diagnoses:�
COPD
Insomnia
Glaucoma
Colon Resection
Appendectomy
Hernia Repair
Total Hysterectomy
Eye Surgery
Consultations:�
Orthopaedics
Procedures:�
Left Hip Gamma Nail 10/26/[address] Bean.
Clinical course:�
79 woman with a fall and a broken hip. She has a history of COPD who presents with left hip fracture following a fall. Additional history is obtained from patient's family at the bedside. Patient had eye surgery several weeks and since that time
seems to be having difficulty with depth perception. Patient was walking, carrying a plate and missed the step down into the dining room. She landed in the left hip and was unable to bear weight after the fall. She denies hitting her head during
the event. She did well after the surgery and has had a good recovery.
1. Mechanical fall resulting in L hip intertrochanteric fracture - recovering well
- pain control
- ortho outpatient follow up
- ASA 325 mg once daily x 4 weeks for DVT prophylaxis
2. Acute blood loss Anemia secondary to surgical procedure
- expected slight drop after procedure
- stable
- monitor CBC - next check as outpatient
3. COPD
- not in acute exacerbation
- cont home singulair and stiolto
- order placed for home stiolto
4. Insomnia
- cont temazepam
5. Glaucoma
- cont home eye drops
As for the rest of her medical problems, they were stable during his hospital stay.
Discharge Plan
-
Discharge Diagnosis/Procedures: Mechanical fall resulting in L hip intertrochanteric fracture
Condition: Good
Diet: As tolerated
Activity: With assistance and Do not bear weight L leg
Driving Restrictions: Not until seen by your Dr
Bathing Restrictions: None
Other Services: PT and OT
Specialty Instructions: Weigh Daily- Call MD for wt gain/loss 3 lbs overnight/5 lbs in 1 week
Instructions: Preventing falls in adults, Hip fracture in adults - Discharge instructions
Referrals:
Dinesh Bean MD [Active] -
UNKNOWN - PT NOT,INTERVIEWE [Family Provider] -
Prescriptions:
New
acetaminophen 325 mg Tablet
650 mg PO Q4HPRN PRN (Reason: mild pain/ fever>100.5F) 14 Days Qty: 84 0RF
aspirin 325 mg Tablet
325 mg PO DAILY 28 Days Qty: 28 0RF
oxycodone 5 mg Tablet
5 mg PO Q4HPRN PRN (Reason: moderate pain) 3 Days Qty: 30 0RF
Continued
temazepam 30 mg Capsule
30 mg PO HS
brimonidine 0.2 % Drops
1 drp BID
Rx Instructions:
both eyes
dorzolamide-timolol [Cosopt] 22.3-6.8 mg/mL Drops
1 drp OPHTHALMIC (EYE) BID
montelukast 10 mg Tablet
10 mg PO HS
pilocarpine HCl 2 % Drops
1 drp OPHTHALMIC (EYE) TID
Rx Instructions:
r eye
multivitamin-calcium carb-iron Tablet
1 tab PO DAILY
Stiolto Respimat 2.5-2.5 mcg/actuation Mist
2 inh INHALATION DAILY
Vyzulta 0.024 % Drops
1 drp BOTH EYES HS
Rx Instructions:
both eyes
Discharge Orders:
Discharge Patient (As Directed); Ordered 10/31/24
Ordered By: Gabriel Henderson
Discharge Date and Time
Print Language: YAKUT
[2024-10-31 13:26] VITALS: BP 116/64
--- NOTE | 2024-10-31 14:29 | W.DCSUMMARY ---
Discharge Summary
Discharge Data
Date of Admission: 10/25/24
Date of Discharge: 10/31/24
Discharge Plan
-
Discharge Diagnosis/Procedures: Mechanical fall resulting in L hip intertrochanteric fracture
Condition: Good
Diet: As tolerated
Activity: With assistance and Do not bear weight L leg
Driving Restrictions: Not until seen by your Dr
Bathing Restrictions: None
Other Services: PT and OT
Specialty Instructions: Weigh Daily- Call MD for wt gain/loss 3 lbs overnight/5 lbs in 1 week
Instructions: Preventing falls in adults, Hip fracture in adults - Discharge instructions
Referrals:
Dinesh Bean MD [Active] -
UNKNOWN - PT NOT,INTERVIEWE [Family Provider] -
Prescriptions:
New
acetaminophen 325 mg Tablet
650 mg PO Q4HPRN PRN (Reason: mild pain/ fever>100.5F) 14 Days Qty: 84 0RF
aspirin 325 mg Tablet
325 mg PO DAILY 28 Days Qty: 28 0RF
oxycodone 5 mg Tablet
5 mg PO Q4HPRN PRN (Reason: moderate pain) 3 Days Qty: 30 0RF
Continued
temazepam 30 mg Capsule
30 mg PO HS
brimonidine 0.2 % Drops
1 drp BID
Rx Instructions:
both eyes
dorzolamide-timolol [Cosopt] 22.3-6.8 mg/mL Drops
1 drp OPHTHALMIC (EYE) BID
montelukast 10 mg Tablet
10 mg PO HS
pilocarpine HCl 2 % Drops
1 drp OPHTHALMIC (EYE) TID
Rx Instructions:
r eye
multivitamin-calcium carb-iron Tablet
1 tab PO DAILY
Stiolto Respimat 2.5-2.5 mcg/actuation Mist
2 inh INHALATION DAILY
Vyzulta 0.024 % Drops
1 drp BOTH EYES HS
Rx Instructions:
both eyes
Discharge Orders:
Discharge Patient (As Directed); Ordered 10/31/24
Ordered By: Gabriel Henderson
Discharge Date and Time
Print Language: OMANI
== END 2024-10-31 14:40 | DRG 481 ==
LOC: 2 SOUTH 20:38
PROVIDERS: Internal Medicine; Physician Assistant Medical; ADMITTING PHYSICIAN Internal Medicine; ATTENDING PHYSICIAN Internal Medicine; CONSULT PHYSICIAN Student in an Organized Health Care Education/Training Program; EMERGENCY PHYSICIAN Emergency Medicine
PROC: 0QS736Z Reposition Left Upper Femur with Intramedullary Internal Fixation Device, Percutaneous Approach (ICD-10-PCS; 2024-10-26)
DX: S72.142A Displaced intertrochanteric fracture of left femur, initial encounter for closed fracture (principal); D62 Acute posthemorrhagic anemia; E22.2 Syndrome of inappropriate secretion of antidiuretic hormone; J44.9 Chronic obstructive pulmonary disease, unspecified; G47.00 Insomnia, unspecified; H40.9 Unspecified glaucoma; W18.30XA Fall on same level, unspecified, initial encounter; Z87.891 Personal history of nicotine dependence; Z79.899 Other long term (current) drug therapy
CPT/HCPCS: 73502; 73552; 76000; 80048; 85025; 85027; 85610; 85730; 86850; 86900; 86901; 94640; 96374; 97110; 97116; 97162; 97166; 97530; 97535; 99285; C1713; C1769

== ENCOUNTER → 2024-11-04 13:39 | Outpatient (REF) | payer MEDICARE, OTHER, SELFPAY ==
[2024-11-04 14:14] LABS: % Basophils 0.4 % (0-2); % Eosinophils 1.9 % (0-6); % Immature Granulocytes 0.4 % (0-0.5); % Lymphocytes 19.1 % (20.5-51.1); % Monocytes 12.2 % (1.7-9.3); Absolute Eosinophils 0.1 10^3/uL (0-0.7); Absolute Lymphocytes 1.3 10^3/uL (1.2-3.4); Absolute Monocytes 0.8 10^3/uL (0.1-0.6); Absolute Neutrophils 4.5 10^3/uL (1.4-6.5); Hematocrit 31.4 % (37.0-47.0); Hemoglobin 9.7 g/dL (12.0-16.0); Mean Corp Hgb Conc. 30.9 g/dL (33.0-37.0); Mean Corpuscular Hgb 30.3 pg (27.0-31.0); Mean Corpuscular Volume 98.1 fL (81.0-99.0); Mean Platelet Volume 8.8 fL (7.4-10.4); Nucleated Red Blood Cells % 0 %; Platelet Count 337 10^3/uL (130-400); Red Cell Dist. Width 13.8 % (11.5-14.5); White Blood Cell Count 6.9 10^3/uL (4.8-10.8)
[2024-11-04 14:39] LABS: Blood Urea Nitrogen 6 mg/dl (7-17); Calcium 8.5 mg/dl (8.4-10.2); Carbon Dioxide 26 mmol/L (22-30); Chloride 101 mmol/L (98-107); Glucose 86 mg/dl (70-99); Potassium 3.9 mmol/L (3.5-5.1); Sodium 135 mmol/L (135-145); eGFR > 60.00
== END ==
LOC: OLABP 13:39
PROVIDERS: ATTENDING PHYSICIAN Family Medicine
DX: S72.002A Fracture of unspecified part of neck of left femur, initial encounter for closed fracture (principal)
CPT/HCPCS: 36415; 80048; 85025

== ENCOUNTER 2025-03-18 03:56 | Observation (INO) | payer MEDICARE, SELFPAY ==
[2025-03-17 21:16] VITALS: BP 176/91
[2025-03-17] MEDS: TYLENOL 650 MG PO (22:06)
[2025-03-18 01:53] VITALS: BMI 21.1
[2025-03-18 01:57] VITALS: BP 147/71
--- NOTE | 2025-03-18 02:21 | ED.GENMED ---
History of Present Illness
General
Chief Complaint: Back Pain
Source: patient
Exam Limitations: none
Time Seen by Provider: 03/18/25 02:02
History of Present Illness
History of Present Illness:
79-year-old female brought here by EMS from home with sudden onset low back pain. She leaned over to tack picker a box and felt pain across her lower back. She has a known history of compression fracture in her back. She also has a semirecent left
hip fracture. She is not anticoagulated. She denies any leg symptoms or bowel or bladder dysfunction. No fever. Patient lives by herself sometimes uses a walker to ambulate. At this point she is unable to ambulate secondary to her pain. She
was given Tylenol at triage without any relief.
Past History
Past History
ED Past Medical History: COPD and GERD
ED Past Surgical History: Bowel resection
Social History
Tobacco: Former smoker
Phy Exam
Physical Exam
Physical Exam:
General: Well-appearing female no acute respiratory distress
HEENT: Normocephalic atraumatic
Musculoskeletal exam: The patient is tender diffusely about the midline of the lumbar spine and the paraspinous area bilaterally.
Skin is intact
Neurologic exam: Good sensation and function to the lower leg
Heart: Regular rate and rhythm
Lungs: Clear no wheeze
Course
Orders/Labs/Results
Orders:
Orders
03/17/25 21:28
CR Lumbar Spine 2 Or 3 Views Urgent
Comment:
Reason For Exam: lower back pain
Pelvis, 1 or 2 Views CR [CR Pelvis - 1 Or 2 Views ] Urgent
Comment:
Reason For Exam: lower back
03/17/25 22:03
Acetaminophen [Tylenol] 650 mg .ROUTE .STK-MED ONE
03/17/25 22:05
Acetaminophen [Tylenol] 650 mg PO NOW STA
03/18/25 02:15
Ketorolac [Toradol] 15 mg IV NOW STA
diazePAM [Valium Injection] 2 mg IV NOW STA
03/18/25 02:50
Complete Blood Count/With Diff Urgent
Comprehensive Metabolic Panel Urgent
Vital Signs
Initial and Last Documented VS:
Initial Vital Signs
Temp Pulse Resp BP Pulse Ox
98.6 F 85 20 176/91 96
03/17/25 21:16 03/17/25 21:16 03/17/25 21:16 03/17/25 21:16 03/17/25 21:16
Last Documented Vital Signs
Temp Pulse Resp BP Pulse Ox
98.6 F 78 16 147/71 98
03/17/25 21:16 03/18/25 01:57 03/18/25 01:57 03/18/25 01:57 03/18/25 01:57
MDM/Problems Addressed
Differential Diagnosis Includes:
Low back pain with inability ambulate secondary to pain. Brought here by EMS where she lives by herself. Consider lumbar strain versus compression fracture. No red flags to suggest cauda equina. No fevers or infectious source. Tylenol initially
not helping we will try Toradol and Valium
*Critical Care Note
Total Time (30-74mins, 75-104mins- exclusive of procedures): Not Applicable
Update Note
Update Note:
After further discussing with family it sounds like the patient has been struggling at home. She recently fell and broke her left hip. This back pain is making her dysfunctional at home otherwise. Discussed with emergency room attending. Will
keep in hospital for potential place
ED Attending Note
-
Portions of this chart may have been created with voice recognition software.� Occasional wrong word or��sound alike� substitutions may have occurred due to the inherent limitations of voice recognition software.
Discharge Plan
Departure
Patient Disposition: Home (Routine Discharge)
Date of Disposition: 03/18/25
Time of Disposition: 03:07
Patient with high blood pressure during this ER visit?: No
Discharge Problem:
Back pain, Ambulatory dysfunction
Prescriptions:
No Action
temazepam 30 mg Capsule
30 mg PO HS
brimonidine 0.2 % Drops
1 drp BID
Rx Instructions:
both eyes
dorzolamide-timolol [Cosopt] 22.3-6.8 mg/mL Drops
1 drp OPHTHALMIC (EYE) BID
montelukast 10 mg Tablet
10 mg PO HS
pilocarpine HCl 2 % Drops
1 drp OPHTHALMIC (EYE) TID
Rx Instructions:
r eye
multivitamin-calcium carb-iron Tablet
1 tab PO DAILY
Stiolto Respimat 2.5-2.5 mcg/actuation Mist
2 inh INHALATION DAILY
Vyzulta 0.024 % Drops
1 drp BOTH EYES HS
Rx Instructions:
both eyes
acetaminophen 325 mg Tablet
650 mg PO Q4HPRN PRN (Reason: mild pain/ fever>100.5F) 14 Days Qty: 84 0RF
aspirin 325 mg Tablet
325 mg PO DAILY 28 Days Qty: 28 0RF
oxycodone 5 mg Tablet
5 mg PO Q4HPRN PRN (Reason: moderate pain) 3 Days Qty: 30 0RF
Referrals:
Bry Simpson MD [Family Provider] -
Interventions
Interventions:
*Risk Screen - Suicide Last Done: 03/18/25 02:04
*General Assessment Last Done: 03/17/25 21:16
*Neglect/Abuse Screening Last Done: 03/17/25 21:16
*ED- Fall Risk Assessment Last Done: 03/17/25 21:16
*ED COVID-19 Vaccine History Last Done: 03/17/25 21:16
ED-Musculoskeletal Assessment Last Done: 03/18/25 01:52
Discharge Date and Time
Print Language: YAKUT
[2025-03-18] MEDS: TORADOL 15 MG IV (02:46)
[2025-03-18] MEDS: VALIUM INJECTION 2 MG IV (02:48)
[2025-03-18 03:38] LABS: % Basophils 0.3 % (0-2); % Eosinophils 1.2 % (0-6); % Immature Granulocytes 0.3 % (0-0.5); % Lymphocytes 18.8 % (20.5-51.1); % Monocytes 9.2 % (1.7-9.3); % Neutrophils 70.2 % (42.2-75.2); Absolute Eosinophils 0.1 10^3/uL (0-0.7); Absolute Lymphocytes 1.6 10^3/uL (1.2-3.4); Absolute Monocytes 0.8 10^3/uL (0.1-0.6); Absolute Neutrophils 6.1 10^3/uL (1.4-6.5); Hematocrit 37.5 % (37.0-47.0); Hemoglobin 12.3 g/dL (12.0-16.0); Mean Corp Hgb Conc. 32.8 g/dL (33.0-37.0); Mean Corpuscular Hgb 30.7 pg (27.0-31.0); Mean Corpuscular Volume 93.5 fL (81.0-99.0); Mean Platelet Volume 8.6 fL (7.4-10.4); Nucleated Red Blood Cells % 0 %; Platelet Count 261 10^3/uL (130-400); Red Blood Cell Count 4.01 10^6/uL (4.20-5.40); Red Cell Dist. Width 14.1 % (11.5-14.5); White Blood Cell Count 8.7 10^3/uL (4.8-10.8)
--- NOTE | 2025-03-18 03:48 | HPS.HSE ---
Family Physician
-
Family Physician: Bry Simpson MD
Chief Complaint
-
Back Pain
History of Present Illness
Patient is a 79y F with PMH significant for COPD and glaucoma who presents to ED complaining of back pain. Patient states that she was carrying heavy boxes this afternoon when she felt a sudden 'pull' in her lower back. She developed sudden and
severe pain across the lower back. No radiation of the pain into the extremities. No numbness or weakness of the extremities. Patient notes that she has been unable to stand / walk since that time due to pain.
Medical History
Past Medical History
Past Medical History: Reports Other
Additional Past Medical History:
COPD
Insomnia
Glaucoma
Past Surgical History: Reports Other
Additional Past Surgical History:
Colon Resection
Appendectomy
Hernia Repair
Total Hysterectomy
Eye Surgery
Social History
Tobacco: Former Smoker (Quit about 10 years ago)
Alcohol: None
Living: Alone
Family History
Family History: Not pertinent
Allergies / Home Medications
Allergies reflects when Allergies were last updated in [employer].
Home Medications with original date entered in [employer]
Allergy/Medication List:
Allergies
Allergy/AdvReac Type Severity Reaction Status Date / Time
No Known Allergies Allergy Verified 10/25/24 17:29
Home Medications
brimonidine 0.2 % eye drops 1 drp BID 10/25/24
dorzolamide 22.3 mg-timolol 6.8 mg/mL eye drops (Cosopt) 1 drp ophthalmic (eye) BID 10/25/24
latanoprostene bunod 0.024 % eye drops (Vyzulta) 1 drp BOTH EYES HS 10/25/24
montelukast 10 mg tablet 10 mg PO HS 10/25/24
temazepam 30 mg capsule 30 mg PO HS 10/25/24
Review of Systems
-
History Source: Patient
A 12 point ROS was completed and negative except as noted: Yes
Constitutional: Denies Fever or Chills
Respiratory: Denies Cough or Trouble Breathing
Cardiac: Denies Chest Pain or Palpitations
Abdomen/GI: Denies Abdominal Pain, Nausea, Vomiting or Diarrhea
: Denies Dysuria, Frequency or Flank Pain
Musculoskeletal: Reports Other (Back pain); Denies Joint Pain or Edema
Neurological: Denies Dizzy or Headache
Physical Exam
Vital Signs
Vital Signs
Temp Pulse Resp BP Pulse Ox
98.6 F 78 16 147/71 98
03/17/25 21:16 03/18/25 01:57 03/18/25 01:57 03/18/25 01:57 03/18/25 01:57
Physical Exam
General: Other (79y F in no distress.)
HEENT: Moist mucous membranes and PERRLA
Respiratory: Clear; No Wheezes, Rales or Rhonchi
Cardiac: S1/S2 and Regular Rhythm; No Murmur
GI: Soft, Non Tender, Non Distended and Normal Bowel Sounds
Musculoskeletal: No Clubbing, No Cyanosis, No Edema and Other (Tenderness / paraspinal spasm in the low back. Pos SLR on the L at about 20 degrees.)
Neuro: AO x 3
Laboratory Results
-
03/18/25 03:22
Impression/Plan
-
A/P: Patient is a 79y F with PMH significant for COPD and glaucoma who presents to ED complaining of back pain.
Back Pain
Ambulatory Dysfunction secondary to the above
- Observe overnight for further evaluation and treatment.
- Suspect muscular injury based on history / exam.
- X-rays done in the ED show old T12 compression fracture - but no new findings in area of concern.
- Supportive care including heat application, pain control, etc.
- PT evaluation in the AM for gait assessment.
- Follow for clinical improvement.
COPD
- Stable. Continue montelukast.
- Albuterol PRN.
Glaucoma
- Stable. Continue usual eye drop regimen.
DVT Prophylaxis: SCDs
Code Status: Full
[2025-03-18 04:03] LABS: ALT (SGPT) 15 U/L (0-35); AST (SGOT) 25 U/L (14-36); Albumin 3.2 g/dl (3.5-5.0); Alkaline Phosphatase 103 U/L (38-126); Blood Urea Nitrogen 5 mg/dl (7-17); Calcium 8.7 mg/dl (8.4-10.2); Carbon Dioxide 26 mmol/L (22-30); Chloride 107 mmol/L (98-107); Estimated Creatinine Clearance 55 ml/min; Glucose 100 mg/dl (70-99); Potassium 3.3 mmol/L (3.5-5.1); Sodium 136 mmol/L (135-145); Total Bilirubin 0.6 mg/dl (0.2-1.3); Total Protein 5.7 g/dl (6.3-8.2); eGFR > 60.00
[2025-03-18 05:45] VITALS: BP 147/71
--- NOTE | 2025-03-18 05:51 | PTCARENOTE ---
Pt. admitted from E.D., AAOx3, pulled over from stretcher, fall risk, bed alarm intact, call bolaños within reach.
[2025-03-18 05:54] VITALS: BP 171/95; BMI 19.3
[2025-03-18 06:00] VITALS: BMI 19.3
[2025-03-18 07:00] VITALS: BP 151/70
[2025-03-18] MEDS: TYLENOL 1000 MG PO (07:52)
[2025-03-18] MEDS: KCL 40 MEQ PO (07:52)
[2025-03-18] MEDS: TIMOPTIC 0.5% OPHTHALMIC SOLUTION 1 DROP BOTH EYES (07:53)
[2025-03-18] MEDS: ALPHAGAN 0.2% EYE DROPS 1 DROP BOTH EYES (07:53)
[2025-03-18] MEDS: TRUSOPT 2% OPHTHALMIC SOLUTION 1 DROP BOTH EYES (07:54)
[2025-03-18 09:39] LABS: Hematocrit 39.5 % (37.0-47.0); Mean Corp Hgb Conc. 32.9 g/dL (33.0-37.0); Mean Corpuscular Hgb 30.9 pg (27.0-31.0); Mean Corpuscular Volume 93.8 fL (81.0-99.0); Platelet Count 282 10^3/uL (130-400); Red Blood Cell Count 4.21 10^6/uL (4.20-5.40); Red Cell Dist. Width 14.1 % (11.5-14.5)
--- NOTE | 2025-03-18 10:07 | W.PN.HOSP.TC ---
Today's Communication/Plan
-
see PN
Assessment / Plan
Assessment / Plan
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 No neurological deficit, no urinary retention or constipation, no
numbness or weakness of LE noted. Pain similar to chronic but just more severe.
A/P:
#Lower back pain, radiculopathic
#chronic T12 compression Fx
PT/OT
pain meds
lidocaine patch
without new neurological deficit - mno reason for additional imaging
#mild hypokalemia
replete and follow potassium
#Glaucoma
#Anxiety
#COPD/Asthma not in exacerbation
#Hx of R femoral Fx
cont home meds
DVT ppx on SCDs
Full code
I have spent at least 56min reviewing chart, test results and providing direct patient care
Anticipated Discharge: Within 24 hours
Subjective/Interval History
-
Date of Service: March 18, 2025
Objective Data
-
Labs:
Laboratory Results
03/18/25 03/18/25
03:22 08:10
WBC 8.7 8.0
Hgb 12.3 13.0
Hct 37.5 39.5
Plt Count 261 282
Sodium 136 Pending
Potassium 3.3 L Pending
Chloride 107 Pending
Carbon Dioxide 26 Pending
BUN 5 L Pending
Creatinine 0.5 L Pending
Glucose 100 H Pending
Calcium 8.7 Pending
Total Bilirubin 0.6
AST 25
ALT 15
Alkaline Phosphatase 103
Vital Signs:
Vital Signs
Temp Pulse Resp BP Pulse Ox
97.8 F 79 18 151/70 96
03/18/25 07:00 05/17/25 07:00 03/18/25 07:00 03/18/25 07:00 03/18/25 07:00
I&O
03/17/25 03/18/25 03/19/25
06:59 06:59 06:59
Intake Total 0 / 0
Balance 0 / 0
Review of Systems
-
History Source: Patient
All other systems: Reviewed and negative
Musculoskeletal: Reports Other (lower back pain across the back )
Neuro: Reports No Symptoms
Physical Exam
-
General: Comfortable
Respiratory: Clear to Auscultation
Cardiac: Regular Rhythm
Musculoskeletal: No Clubbing, No Cyanosis and No Edema
Neuro: Awake, Alert, Oriented, AO x 3, No Motor Deficits and No Sensory Deficits
Psych: Calm
[2025-03-18 10:32] LABS: Blood Urea Nitrogen 5 mg/dl (7-17); Carbon Dioxide 26 mmol/L (22-30); Chloride 106 mmol/L (98-107); Estimated Creatinine Clearance 54 ml/min; Glucose 81 mg/dl (70-99); Potassium 3.7 mmol/L (3.5-5.1); Sodium 136 mmol/L (135-145); eGFR > 60.00
[2025-03-18] MEDS: LIDOCAINE 4% PATCH 1 PATCH TOPICAL (10:50)
[2025-03-18] MEDS: ULTRAM 25 MG PO (10:53)
--- NOTE | 2025-03-18 12:23 | CM ---
Addendum entered by Paxton Ayala 03/18/25 12:53:
Patient for d/c today
Discussed home PT, patient agreeable to [facility]
Referral sent in [facility]
Patient left message w/ daughter for transport home
Plan: Home w/ [facility]
Addendum entered by Paxton Ayala 03/18/25 12:31:
Patient admitted as obs. OOBS form verbally reviewed, copy given to patient, copy on chart
Original Note:
CM met w/ patient bedside, initial assessment completed. Patient is a 79y F with PMH significant for COPD and glaucoma who presents to ED complaining of back pain.
Patient resides alone in a 2STH- 1 step to enter. Independent w/ the use of a RW, has stair glide in the home. [facility] in the past, home PT in the past, doesn't remember the provider. 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
past, wasn't the best experience. Family is supportive.
Address, points of contact and insurance verified
PCP: Elise Lozano
Pharmacy: [facility]. Patient uses [facility] mail orders for continuous medications
Therapy assessed patient, rec home PT at d/c. Will discuss w/ patient prior to d/c
Plan: Home. Home PT recommended
--- NOTE | 2025-03-18 12:46 | W.DCSUMMARY ---
Discharge Summary
Discharge Data
Date of Admission: 03/18/25
Date of Discharge: 03/18/25
-
Pending Results: No
Hospital Course
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 No neurological deficit, no urinary retention or constipation, no
numbness or weakness of LE noted. Pain similar to chronic but just more severe. Improved on Lidocaine patch. PT/OT recommending home PT. Voltaren gel for 5 days to decrase inflammation. Medically stable to be d/c home
I have spent at least 56min reviewing chart, test results and providing direct patient care
Patient was managed for:
#Lower back pain, radiculopathic
#chronic T12 compression Fx
#mild hypokalemia
#Glaucoma
#Anxiety
#COPD/Asthma not in exacerbation
#Hx of R femoral Fx
Discharge Plan
-
Patient Disposition: Home with Home Care
Discharge Diagnosis/Procedures: radiculopathy
Diet: Regular
Activity: No restrictions
Driving Restrictions: As prior to admission
Referrals:
Elise Lozano DO [Family Provider] -
Prescriptions:
New
lidocaine 4 % Adhesive Patch,Medicated
1 patch topical DAILY Qty: 30 0RF
tramadol 50 mg Tablet
25 mg PO Q8HPRN PRN (Reason: Severe Pain) Qty: 6 0RF
diclofenac sodium [Voltaren Arthritis Pain] 1 % gel
4 g topical QID 5 Days Qty: 50 0RF
Rx Instructions:
on lower back
Continued
temazepam 30 mg Capsule
30 mg PO HS
brimonidine 0.2 % Drops
1 drp BID
Rx Instructions:
both eyes
dorzolamide-timolol [Cosopt] 22.3-6.8 mg/mL Drops
1 drp OPHTHALMIC (EYE) BID
montelukast 10 mg Tablet
10 mg PO HS
Vyzulta 0.024 % Drops
1 drp BOTH EYES HS
Rx Instructions:
both eyes
Discharge Orders:
Discharge Patient (As Directed); Ordered 03/18/25
Ordered By: Quinn Everett
Discharge Date and Time
Print Language: GABONESE
[2025-03-18 13:07] VITALS: BP 135/83
[2025-03-18 15:40] VITALS: BP 138/90
== END 2025-03-18 15:41 | disposition home health service (06) ==
LOC: 4 WEST ACU 03:56
PROVIDERS: Physician Assistant; ADMITTING PHYSICIAN Hospitalist; ATTENDING PHYSICIAN Internal Medicine; EMERGENCY PHYSICIAN Emergency Medicine; FAMILY PHYSICIAN Family Medicine
DX: M48.54XA Collapsed vertebra, not elsewhere classified, thoracic region, initial encounter for fracture (principal); M54.9 Dorsalgia, unspecified; Z60.2 Problems related to living alone; Z87.891 Personal history of nicotine dependence; R26.2 Difficulty in walking, not elsewhere classified; H40.9 Unspecified glaucoma; M54.50 Low back pain, unspecified; E87.6 Hypokalemia; F41.9 Anxiety disorder, unspecified; J44.89 Other specified chronic obstructive pulmonary disease
CPT/HCPCS: 72100; 72170; 80048; 80053; 83735; 85025; 85027; 94760; 96374; 96375; 97162; 99284; 99285; G0378

== ENCOUNTER 2025-09-18 06:19 | Emergency (ER) | payer OTHER, SELFPAY ==
[2025-09-18 06:22] VITALS: BP 149/79
--- NOTE | 2025-09-18 07:28 | ED.GENMED ---
History of Present Illness
General
Chief Complaint: Musculo-Skeletal Complaint
Source: patient
Exam Limitations: none
Time Seen by Provider: 09/18/25 07:19
History of Present Illness
History of Present Illness:
80yoF with a history of COPD presenting with her son for evaluation of left scapular pain that has been ongoing for the past week. She denies any falls or other trauma. She thought it would go away by now but pain is persistent. She describes the
pain as excruciating. Pain is worse with movement and worse with breathing at times. She has been taking Tylenol without any relief. She also endorses intermittent chest pains which resolve after taking Tylenol. She denies any chest pain
currently. She denies any fevers, cough, shortness of breath, paresthesias, rash.
Past History
Past History
ED Past Medical History: COPD and GERD
ED Past Surgical History: Bowel resection
Social History
Tobacco: Former smoker
Phy Exam
General Physical Exam
General Presentation: well appearing and no apparent distress
General Skin: warm and dry
General Habitus: normal and elderly
General Mental: alert
ENT Exam
ENT Exam: normocephalic
Cardiovascular Exam
Cardiovascular Exam: regular rate/rhythm and normal peripheral pulses (2+ DP pulses bilaterally)
Pulmonary Exam
Pulmonary Exam: no respiratory distress, no rales, no crackles, no rhonchi, no wheezing and decreased breath sounds
Neurological Exam
Neurological Exam: alert
Pauly Coma Scale
Eye Opening: Spontaneous
Verbal Response: Oriented
Motor Response: Obeys Commands
GCS Total Score: 15
Musculoskeletal Exam
Musculoskeletal Exam: other (+Reproducible tenderness to L scapular region. No skin changes. No midline spinous process tenderness. ROM of L shoulder elicits pain but there is no tenderness to palpation of shoulder joint. )
Skin Exam
Skin Exam: normal color and warm/dry
Psychiatric Exam
Psychiatric Exam: normal mood/affect
Course
Orders/Labs/Results
Orders:
Orders
09/18/25 07:27
Electrocardiogram (*1) Urgent
Reason for Study: Chest Pain
Cardiac Monitoring- Treatment ONCE
EKG- Treatment ONCE
09/18/25 08:33
Complete Blood Count/With Diff Urgent
Comprehensive Metabolic Panel Urgent
D-Dimer Urgent
Troponin I Urgent
09/18/25 09:11
CR Chest - 2 Views Urgent
Comment:
Reason For Exam: L upper back pain
CR Scapula - Left Complete Urgent
Comment:
Reason For Exam: L scapular pain
09/18/25 10:34
Ketorolac [Toradol] 15 mg IV NOW STA
Oxycodone/Acetaminophen [Percocet 5/325] 1 tablet PO NOW STA
Abnormal Lab Results
09/18/25
08:33
WBC 12.9 H 10^3/uL
(4.8-10.8)
MCHC 32.5 L g/dL
(33.0-37.0)
Abs Immat Gran (auto) 0.1 H 10^3/uL
(0-0.05)
Absolute Neuts (auto) 10.1 H 10^3/uL
(1.4-6.5)
Absolute Monos (auto) 1.2 H 10^3/uL
(0.1-0.6)
Neutrophils % 78.6 H %
(42.2-75.2)
Lymphocytes % 11.5 L %
(20.5-51.1)
Sodium 132 L mmol/L
(135-145)
Creatinine 0.5 L mg/dL
(0.6-1.0)
Glucose 105 H mg/dl
(70-99)
Alkaline Phosphatase 144 H U/L
(38-126)
09/18/25 08:33
09/18/25 08:33
Vital Signs
Initial and Last Documented VS:
Initial Vital Signs
Temp Pulse Resp BP Pulse Ox
98.3 F 102 16 149/79 96
09/18/25 06:22 09/18/25 06:22 09/18/25 06:22 09/18/25 06:22 09/18/25 06:22
Last Documented Vital Signs
Temp Pulse Resp BP Pulse Ox
98.3 F 96 20 132/73 97
09/18/25 12:03 09/18/25 12:03 09/18/25 12:03 09/18/25 12:03 09/18/25 12:03
MDM/Problems Addressed
Differential Diagnosis Includes:
80yoF here with L thoracic pain x 1 week. No specific trauma. Worse with movement and sometimes worse with breathing. No cough or fever. Had chest pain yesterday but none today. Patient is well appearing in no distress. There is reproducible
tenderness on exam without skin changes. Differential diagnosis includes: muscular strain, fracture, pneumonia, PE, consider ACS
Initial ED plan: Check cardiac labs, D-dimer, EKG, and CXR vs. CT depending on D-dimer results. Patient declining analgesics.
*Pulse Oximetry
SaO2: 96
Oxygen Mode of Delivery: Room air
Patient hypoxic: no
*EKG
Interpreted by ED Provider?: Yes
EKG Intrepretation Date: 09/18/25
Heart Rate: 97
Rate: normal
Rhythm: sinus
[place]: left axis deviation
QRS Pattern: normal QRS
Ischemia: no ischemia
*Critical Care Note
Total Time (30-74mins, 75-104mins- exclusive of procedures): Not Applicable
Update Note
Update Note:
EKG shows normal sinus rhythm without ischemic changes and troponin undetectable. D-dimer normal making PE very unlikely. Scapular x-rays and chest x-ray obtained. Imaging shows multiple compression fractures in the thoracolumbar spine. T12
compression fracture slightly progressed compared to March 2025 and T6 fracture was not present on prior CT back in 2022. Findings discussed with patient and son. Suspect pain is radiating from the compression fracture vs. muscular. She initially
declined analgesics but son believes she needs this as Tylenol is not helping. Patient has tolerated oxycodone well in the past. Dose of IV Toradol and Percocet ordered in ED. Will provide short-term prescription for oxycodone. Offered PT
evaluation which patient declines. She states she is ambulating well at home. Advised close follow-up with PCP and ED return precautions reviewed. Son in agreement with plan and patient was discharged in stable condition.
ED Attending Note
-
Portions of this chart may have been created with voice recognition software.� Occasional wrong word or��sound alike� substitutions may have occurred due to the inherent limitations of voice recognition software.
Discharge Plan
Departure
Patient Disposition: Home (Routine Discharge)
Date of Disposition: 09/18/25
Time of Disposition: 10:40
Patient with high blood pressure during this ER visit?: No
Discharge Problem:
Acute left-sided thoracic back pain
Instructions: Upper Back Pain ED
Prescriptions:
New
oxycodone 5 mg tablet
5 mg PO Q8H PRN (Reason: Pain) Qty: 9 0RF
No Action
temazepam 30 mg Capsule
30 mg PO HS
brimonidine 0.2 % Drops
1 drp BID
Rx Instructions:
both eyes
dorzolamide-timolol [Cosopt] 22.3-6.8 mg/mL Drops
1 drp OPHTHALMIC (EYE) BID
montelukast 10 mg Tablet
10 mg PO HS
Vyzulta 0.024 % Drops
1 drp BOTH EYES HS
Rx Instructions:
both eyes
lidocaine 4 % Adhesive Patch,Medicated
1 patch topical DAILY Qty: 30 0RF
tramadol 50 mg Tablet
25 mg PO Q8HPRN PRN (Reason: Severe Pain) Qty: 6 0RF
diclofenac sodium [Voltaren Arthritis Pain] 1 % gel
4 g topical QID 5 Days Qty: 50 0RF
Rx Instructions:
on lower back
Referrals:
UNKNOWN - PT DOES,NOT KNOW [Family Provider]
Activity Restrictions/Additional Instructions:
You may continue taking Tylenol as needed. Only take oxycodone as needed for severe breakthrough pain.
Please call today to schedule a follow-up appointment with your family doctor in the next 2 to 3 days. Return to the ER immediately with any new or worsening symptoms.
Interventions
Interventions:
*Risk Screen - Suicide Last Done: 09/18/25 06:25
*General Assessment Last Done: 09/18/25 06:25
*Neglect/Abuse Screening Last Done: 09/18/25 06:25
*ED- Fall Risk Assessment Last Done: 09/18/25 08:15
*ED COVID-19 Vaccine History Last Done: 09/18/25 06:25
*ED Influenza Vaccine History Last Done: 09/18/25 06:25
*Nursing Disposition Last Done: 09/18/25 12:03
ED-Musculoskeletal Assessment Last Done: 09/18/25 08:11
Discharge Date and Time
Discharge Date/Time: 09/18/25 12:00
Print Language: DOMINICAN
[2025-09-18 08:11] VITALS: BP 138/79; BMI 22.1
[2025-09-18 08:50] LABS: Hematocrit 43.1 % (37.0-47.0); Hemoglobin 14.0 g/dL (12.0-16.0); Mean Corp Hgb Conc. 32.5 g/dL (33.0-37.0); Mean Corpuscular Volume 93.3 fL (81.0-99.0); Nucleated Red Blood Cells % 0 %; Platelet Count 315 10^3/uL (130-400); Red Cell Dist. Width 14.5 % (11.5-14.5)
[2025-09-18 09:04] LABS: D-Dimer 0.43 ug/mlFEU (0.00-0.50)
[2025-09-18 09:15] LABS: ALT (SGPT) 17 U/L (0-35); AST (SGOT) 30 U/L (14-36); Albumin 3.6 g/dl (3.5-5.0); Alkaline Phosphatase 144 U/L (38-126); Blood Urea Nitrogen 7 mg/dl (7-17); Calcium 8.9 mg/dl (8.4-10.2); Carbon Dioxide 27 mmol/L (22-30); Chloride 100 mmol/L (98-107); Estimated Creatinine Clearance 43 ml/min; Glucose 105 mg/dl (70-99); Potassium 4.1 mmol/L (3.5-5.1); Sodium 132 mmol/L (135-145); Total Protein 6.6 g/dl (6.3-8.2); eGFR > 60.00
[2025-09-18 09:25] LABS: Troponin I < 0.012 ng/ml
[2025-09-18] MEDS: PERCOCET 5/325 1 TABLET PO (11:22)
[2025-09-18] MEDS: TORADOL 15 MG IV (11:23)
--- NOTE | 2025-09-18 12:00 | EDRN ---
Reviewed discharge instructions with patient. Verbalized understanding. Taken to car in wheelchair.
[2025-09-18 12:03] VITALS: BP 132/73
== END 2025-09-18 12:00 | disposition home or self-care (01) ==
LOC: EMR 06:19
PROVIDERS: Physician Assistant; EMERGENCY PHYSICIAN Emergency Medicine
DX: M54.6 Pain in thoracic spine (principal); J44.9 Chronic obstructive pulmonary disease, unspecified; Z87.891 Personal history of nicotine dependence
CPT/HCPCS: 99285; 96374; 71046; 73010; 80053; 84484; 85025; 85379; 93005